=== PATIENT | male | born 1935 | race Caucasian/White ===

== ENCOUNTER 2016-11-16 08:16 | Day surgery (SDC) | payer OTHER ==
[2016-11-11 11:41] VITALS: BMI 23.7
[2016-11-16] MEDS ORDERED: PROPOFOL 20 ML ONE ×3 (08:37)
[2016-11-16] MEDS ORDERED: LIDOCAINE HCL/PF 2% SDV 5ML VIAL ONE (08:38)
[2016-11-16 10:56] VITALS: TEMP 97.7
[2016-11-16 11:30] VITALS: BP 154/71; PULSE 56
--- NOTE | 2016-11-17 11:47 | PATH ---
Surgical Pathology Report Patient Name: JOHN STEWART [facility]. Rec. #: [id number] /Age/Gender: 1935 (Age: 81) / M Account: [id number] Location: [facility]-ENDOS[facility] Taken: 11/16/2016 Received: 11/16/2016 Reported: 11/17/2016 Physicians: Douglas Shaw M.D. Specimen(s) Received A: BX DUODENUM B: BX ANTRUM C: BX RIGHT COLON Clinical History GERD, history colon polyp r/o celiac disease, gastritis, colonic polyp Final Diagnosis A. DUODENUM, BIOPSY: DUODENAL MUCOSA WITH NO PATHOLOGIC CHANGES. NO HISTOLOGIC EVIDENCE OF GLUTEN SENSITIVE ENTEROPATHY (CELIAC SPRUE) IDENTIFIED. B. STOMACH, ANTRUM, BIOPSY: MODERATE CHRONIC ACTIVE GASTRITIS. IMMUNOSTAIN FOR H. PYLORI IS POSITIVE (RARE ORGANISMS). C. COLON, RIGHT, BIOPSY: TUBULAR ADENOMA. Electronically Signed Santiago Rodriguez M.D. Gross Description A. Received in formalin, labeled "duodenum" are two fragments of burrell tissue 0.4 cm in greatest dimension. The specimens are submitted in toto in one cassette. B. Received in formalin, labeled "antrum" are two fragments of burrell tissue 0.3 cm. in greatest dimension. The specimens are submitted in toto in one cassette. C. Received in formalin, labeled "right colon and" is a fragment of burrell tissue measuring 0.4 cm. in greatest dimension. The specimen is submitted in toto in one cassette. AF/11/16/2016 final/11/16/2016
== END 2016-11-16 11:40 | disposition home or self-care (01) ==
LOC: FASU-ENDO 08:16
PROVIDERS: ATTEND Internal Medicine Gastroenterology
PROC: 0DB68ZX Excision of Stomach, Via Natural or Artificial Opening Endoscopic, Diagnostic (ICD-10-PCS; 2016-11-16)
PROC: 0DBK8ZX Excision of Ascending Colon, Via Natural or Artificial Opening Endoscopic, Diagnostic (ICD-10-PCS; principal; 2016-11-16 10:17)
PROC: 0DB98ZX Excision of Duodenum, Via Natural or Artificial Opening Endoscopic, Diagnostic (ICD-10-PCS; 2016-11-16 10:17)
DX: Z86.010 Personal history of colon polyps (principal); D12.2 Benign neoplasm of ascending colon; K29.50 Unspecified chronic gastritis without bleeding; B96.81 Helicobacter pylori [H. pylori] as the cause of diseases classified elsewhere
CPT/HCPCS: 88305-TC; 88342-TC

== ENCOUNTER 2021-02-02 14:00 | Emergency (ER) | payer OTHER ==
[2021-02-02 14:17] VITALS: BP 142/72; PULSE 84; TEMP 98.8; BMI 22.8
[2021-02-02] MEDS ORDERED: ACETAMINOPHEN 500 MG TABLET (FP) PO ONE (14:22)
[2021-02-02] MEDS ORDERED: ACETAMINOPHEN 500 MG TABLET (FP) ONE (14:24)
== END 2021-02-02 14:38 | disposition home or self-care (01) ==
LOC: SUPCPDRO 14:00 → FER 14:00
DX: R07.0 Pain in throat (principal)
CPT/HCPCS: 87651; 87804; 99283-25; C9803; U0003; U0005

== ENCOUNTER 2023-01-02 09:20 | Emergency (ER) | payer OTHER ==
[2023-01-02 09:32] VITALS: BP 138/74; PULSE 72; RESP 16; TEMP 98.6; BMI 24.0
== END 2023-01-02 11:23 | disposition home or self-care (01) ==
LOC: FER 09:20
DX: M54.6 Pain in thoracic spine (principal); W01.198A Fall on same level from slipping, tripping and stumbling with subsequent striking against other object, initial encounter
CPT/HCPCS: 71046-TC-FY; 72070-TC-FY; 99284-25